=== PATIENT | male | born 1955 | race Caucasian/White ===

== ENCOUNTER 2019-03-04 08:54 | Emergency (ER) | payer BC ==
[2019-03-04 09:07] VITALS: BP 154/72; PULSE 84; TEMP 97.6; BMI 33.9
--- NOTE | 2019-03-04 09:49 | PDOC ---
History of Present Illness - General Chief Complaint: Nausea/Vomiting Stated Complaint: WEAKNESS/VOMITING - History of Present Illness Initial Comments: The pt is a 63M w/ a history of NIDDM who presents for evaluation of lightheadedness and NBNB x2 that the pt reports is how he feels when his BG is elevated. He take Metformin and another oral agent that he reports compliance with and w/o recent regimen change. He denies decreased PO intake. Denies fevers/chills, chest pain, trouble breathing, abdominal pain, diarrhea, dysuria, hematuria, blood in his stool, or changes in sensation. 03/04/19 10:04 Past History - Past Medical History Allergies/Adverse Reactions: Allergies Allergy/AdvReac Type Severity Reaction Status Date / Time No Known Allergies Allergy Verified 03/30/16 11:25 Home Medications: Ambulatory Orders Metformin HCl [Glucophage] 1,000 mg PO BID 01/25/16 Glimepiride [Amaryl -] 2 mg PO BID 03/04/19 Icosapent Ethyl [Vascepa] 1 gm PO BID 03/04/19 Losartan Potassium 25 mg PO DAILY 03/04/19 Saxagliptin HCl [Onglyza] 5 mg PO DAILY 03/04/19 COPD: No Diabetes: Yes HTN: Yes Hypercholesterolemia: Yes - Surgical History Abdominal Surgery: Yes (HERNIA) Appendectomy: Yes Orthopedic Surgery: Yes (left knee meniscus repair 3yrs ago) - Family Disease History Family Disease History: Diabetes: Mother - Immunization History Td Vaccination: Yes TDAP Vaccination: Yes Immunization Up to Date: Yes - Suicide/Smoking/Psychosocial Hx Smoking History: Never smoked Have you smoked in the past 12 months: No Information on smoking cessation initiated: No Hx Alcohol Use: No Drug/Substance Use Hx: No Substance Use Type: None Review of Systems - Review of Systems Able to Perform ROS?: Yes Comments:: GENERAL/CONSTITUTIONAL: No fever or chills. No weakness HEAD, EYES, EARS, NOSE AND THROAT: No change in vision. No ear pain or discharge. No sore throat CARDIOVASCULAR: No chest pain or shortness of breath RESPIRATORY: Denies cough, hemoptysis GASTROINTESTINAL: No diarrhea or constipation GENITOURINARY: No dysuria, frequency, or change in urination MUSCULOSKELETAL: No joint or muscle swelling or pain. No neck or back pain SKIN: No rash NEUROLOGIC: No headache, vertigo, loss of consciousness, or change in strength/ sensation ENDOCRINE: No increased thirst. No abnormal weight change HEMATOLOGIC/LYMPHATIC: No anemia, easy bleeding, or history of blood clots ALLERGIC/IMMUNOLOGIC: No hives or skin allergy 03/04/19 09:49 Is the patient limited Yoruba proficient: No *Physical Exam - Vital Signs Last Vital Signs Temp Pulse Resp BP Pulse Ox 97.6 F 84 16 154/72 98 03/04/19 09:03 03/04/19 09:03 03/04/19 09:03 03/04/19 09:03 03/04/19 09:03 - Physical Exam Comments: GENERAL: Awake, alert, and oriented to person/place/time, in no acute distress HEAD: No signs of trauma, normocephalic, atraumatic EYES: PERRLA, EOMI, sclera anicteric, conjunctiva clear ENT: Hearing grossly normal, nares patent, oropharynx clear without exudates. Moist mucosa LUNGS: No distress, speaks in full sentences, clear to auscultation bilaterally HEART: Regular rate and rhythm, normal S1 and S2, no murmurs appreciated, peripheral pulses normal and equal bilaterally ABDOMEN: Soft, nontender, normoactive bowel sounds. No guarding, no rebound EXTREMITIES: Normal inspection, Normal range of motion, no edema. No clubbing or cyanosis NEUROLOGICAL: Cranial nerves II through XII grossly intact. Normal speech, normal gait, no focal sensorimotor deficits SKIN: Warm, Dry 03/04/19 09:49 ED Treatment Course - LABORATORY CBC & Chemistry Diagram: 03/04/19 10:00 03/04/19 10:00 Medical Decision Making - Medical Decision Making The pt is a 63M w/ a history of NIDDM who presents for evaluation of hyperglycemia associated with nausea, NBNB vomiting x1, and dizziness Ddx DKA/HHS/hyperglycemia, lyte abn CMP, CBC, Serum Acetone ECG BGM Pt hyperglycemic to 200s -IVF 03/04/19 10:06 Lytes unremarkable BUN mildly elevated, receiving IVF No anemia No leukcytosis LFTs unremarkable Will reassess 03/04/19 11:03 Pt feels improved No AG Acetone neg Plan for D/C w/ PCP f/u Discharge instructions and return precautions given Pt in agreement and verbalized understandin Dispo: home *DC/Admit/Observation/Transfer Diagnosis at time of Disposition: Hyperglycemia - Discharge Dispostion Disposition: HOME Condition at time of disposition: Improved Decision to Admit order: No - Referrals Referrals: Minnie Benjamin MD [Primary Care Provider] - - Patient Instructions Printed Discharge Instructions: DI for Hyperglycemia -- Adult Additional Instructions: You were seen in the Emergency Department for evaluation of high blood sugar. Your labs were notable for an elevation in your BUN which can be a marker of dehydration or decreased kidney function and you were given 2 liters of IV fluid. Review the handout provided at discharge, continue to take your diabetic medications as prescribed, and follow up with your primary care provider within the week. Return to the Emergency Department if you develop fevers/chills, chest pain, trouble breathing, abdominal pain, dizziness, inability to tolerate food, worsening symptoms, or any new/concerning symptoms. - Post Discharge Activity Forms/Work/School Notes: Back to Work
[2019-03-04] MEDS ORDERED: SODIUM CHLORIDE 0.9% 500 ML INFUS.BAG IV ONE (10:08)
[2019-03-04 10:15] LABS: BASO % 0.4 % (0-2.0); EOS % 0.6 % (0-4.5); HEMATOCRIT 43.8 % (35.4-49); HEMOGLOBIN 14.2 GM/dL (11.7-16.9); LYMPH % 11.2 % (8-40); MCHC 32.4 g/dl (32.0-35.9); MEAN CELL VOLUME 70.9 fl (80-96); MEAN PLT VOLUME 7.5 fl (7.5-11.1); MONO % 4.5 % (3.8-10.2); NEUT % 83.3 % (42.8-82.8); PLATELET COUNT 251 K/MM3 (134-434); RBC 6.17 M/mm3 (4.00-5.60); RDW 17.1 % (11.9-15.9); WHITE BLOOD COUNT 9.8 K/mm3 (4.0-10.0)
[2019-03-04 10:51] LABS: ALBUMIN 3.9 g/dl (3.4-5.0); BILIRUBIN,TOTAL 0.5 mg/dL (0.2-1); BLOOD UREA NITROGEN 25.5 mg/dL (7-18); CREATININE 1.3 mg/dL (0.55-1.3); POTASSIUM 4.7 mmol/L (3.5-5.1); TOT PROT 7.5 g/dl (6.4-8.2)
[2019-03-04] MEDS ORDERED: MECLIZINE HCL 25 MG TABLET (FP) PO ONE (11:30)
[2019-03-04] MEDS ORDERED: MECLIZINE HCL 25 MG TABLET (FP) ONE (11:32)
[2019-03-04] MEDS ORDERED: SODIUM CHLORIDE 1,000 ML IV STA (11:33)
[2019-03-04] MEDS ORDERED: ONDANSETRON 4 MG/2 ML VIAL ONE (11:34)
[2019-03-04] MEDS ORDERED: ONDANSETRON 4 MG/2 ML VIAL IVPUSH ONE (11:34)
--- NOTE | 2019-03-04 11:35 | PDOC ---
Attending Attestation - Resident Resident Name: Adair Oliveran - ED Attending Attestation I have performed the following: I have examined & evaluated the patient, The case was reviewed & discussed with the resident, I agree w/resident's findings & plan - HPI HPI: 03/04/19 11:30 63-year-old male very active, well-controlled diabetes presents with lightheadedness/dizziness and nausea this morning. Patient admits to having high sugar diet last night, this morning ate breakfast but felt a little lightheaded, while at work developed nausea and subsequent nonbloody nonbilious vomiting with persistent dizziness or presents for evaluation. No headache/ vision change/speech change/focal deficit/neck pain, no chest pain/palpitations/ shortness of breath. No recent fevers or chills or infectious complaints No symptoms of hyperglycemia recently - Physicial Exam PE: 03/04/19 11:31 Vital signs normal Well-appearing well-developed Dry mucosa, no jaundice or pallor Heart is regular without audible murmur, lungs are clear Abdomen benign NEURO: Mental status: The patient is alert and oriented x3. Cranial nerves: Cranial nerves II through XII are intact Motor: The upper extremities are 5 over 5 in all muscle groups. The lower extremities are 5 over 5 in all muscle groups. No pronator drift. Sensation: Sensation is intact to light touch throughout. Cerebellar: Jexkhc-xlrgmy-alyh is normal in both upper extremities. Heel-knee- ludwig is normal in both lower extremities. Reflexes: 2+ and symmetric in the upper and lower extremities. Gait: Normal. Heel and toe walking are normal. Tandem gait is normal. - Medical Decision Making 03/04/19 11:32 63-year-old diabetic with dizziness and nausea/vomiting this morning, neurologically intact without evidence of cardiopulmonary process or red flags. Rule out hyperglycemia/DKA, rule out dehydration, not clinically consistent with CVA or TIA or ACS. ? peripheral vertigo given transient room-spinning with positional changes. Check labs, EKG IV fluid rehydration, nausea control Trial of meclizine Reassess 03/04/19 12:54 feels much better, labs wnl. seated and eating sandwich. requesting discharge, understands return criteria. Heart Score/ECG Review - History History: Slightly suspicious - Electrocardiogram EKG: Normal - Age Age: 45-65 - Risk Factors Based on the list above the patient has:: 1-2 risk factors - Troponin Troponin: </= normal limit - Score Heart Score - Total: 2 #1 ECG reviewed & interpreted by me at: 09:00 General ECG Interpretation: Sinus Rhythm, Normal Rate (81), Normal Intervals ( qtc 429, qrs 92), No acute ischemic changes
[2019-03-04 11:37] LABS: EPI CELLS 0.8 /HPF (0-5/HPF); HYALINE CASTS 4 /lpf (0-8); PH,URINE 6.5 (5.0-8.0); URINE APPEARANCE CLEAR; URINE BACTERIA 2.7 /hpf (NEGATIVE); URINE BILIRUBIN NEGATIVE (NEGATIVE); URINE COLOR YELLOW; URINE GLUCOSE (UA) 3+ (NEGATIVE); URINE KETONE 1+ (NEGATIVE); URINE LEUK ESTERASE NEGATIVE (NEGATIVE); URINE NITRITE NEGATIVE (NEGATIVE); URINE PROTEIN 2+ (NEGATIVE); URINE RBC 3 /hpf (0-4); URINE UROBILINOGEN 0.2 mg/dL (0.2-1.0); URINE WBC 4 /hpf (0-5)
--- NOTE | 2019-03-04 14:33 | EKG ---
Test Reason : Blood Pressure : / mmHG Vent. Rate : 081 BPM Atrial Rate : 081 BPM P-R Int : 158 ms QRS Dur : 092 ms QT Int : 370 ms P-R-T Axes : 050 031 010 degrees QTc Int : 429 ms NORMAL SINUS RHYTHM POSSIBLE LEFT ATRIAL ENLARGEMENT BORDERLINE ECG NO PREVIOUS ECGS AVAILABLE Confirmed by Sae Gaitan ([id number]) on 03/04/2019 2:32:52 PM Referred By: Confirmed By:Sae Gaitan
== END 2019-03-04 12:22 | disposition home or self-care (01) ==
LOC: JER 08:54
PROC: 3E0337Z Introduction of Electrolytic and Water Balance Substance into Peripheral Vein, Percutaneous Approach (ICD-10-PCS; principal; 2019-03-04)
PROC: 3E033GC Introduction of Other Therapeutic Substance into Peripheral Vein, Percutaneous Approach (ICD-10-PCS; 2019-03-04)
DX: E11.65 Type 2 diabetes mellitus with hyperglycemia (principal); Z79.84 Long term (current) use of oral hypoglycemic drugs; I10 Essential (primary) hypertension; E78.5 Hyperlipidemia, unspecified
CPT/HCPCS: 36415; 80053; 81003; 82009; 82962; 85025; 93005; 93010; 99282-25; J7030

== ENCOUNTER 2021-01-31 22:49 | Emergency (ER) | payer BC ==
[2021-01-31 22:58] VITALS: BMI 31.9
[2021-01-31] MEDS ORDERED: SUCRALFATE 1 GM TABLET (FP) PO ONE (23:30)
[2021-01-31] MEDS ORDERED: FAMOTIDINE 10 MG TABLET PO ONE (23:30)
[2021-01-31] MEDS ORDERED: MAG HYDROX/AL HYDROX/SIMETH 30 ML UNIT-DOSE CUP PO ONE (23:31)
[2021-01-31] MEDS ORDERED: FAMOTIDINE 10 MG TABLET ONE (23:44)
[2021-01-31] MEDS ORDERED: SUCRALFATE 1 GM TABLET (FP) ONE (23:44)
[2021-01-31] MEDS ORDERED: MAG HYDROX/AL HYDROX/SIMETH 30 ML UNIT-DOSE CUP ONE (23:44)
[2021-02-01 00:29] LABS: BASO % 0.2 % (0-2.0); EOS % 0.2 % (0-4.5); HEMATOCRIT 40.5 % (35.4-49); LYMPH % 11.3 % (8-40); MCH 27.4 pg (25.7-33.7); MCHC 34.5 g/dl (32.0-35.9); MEAN CELL VOLUME 79.3 fl (80-96); MONO % 6.5 % (3.8-10.2); NEUT % 81.8 % (42.8-82.8); PLATELET COUNT 231 K/MM3 (134-434); RDW 13.4 % (11.9-15.9); WHITE BLOOD COUNT 10.8 K/mm3 (4.0-10.0)
[2021-02-01 00:48] LABS: CHLORIDE 101 mmol/L (98-107); SODIUM 135 mmol/L (136-145)
[2021-02-01 00:49] LABS: ANION GAP 11 MMOL/L (8-16); BLOOD UREA NITROGEN 28.8 mg/dL (7-18); CALCIUM 9.6 mg/dL (8.5-10.1); CO2 23 mmol/L (21-32)
[2021-02-01 00:50] LABS: GLUCOSE,RANDOM 304 mg/dL (74-106)
[2021-02-01 00:53] LABS: CREATININE 1.2 mg/dL (0.55-1.3)
[2021-02-01] MEDS ORDERED: ASPIRIN 81 MG CHEWABLE TABLETS PO ONE (01:33)
[2021-02-01] MEDS ORDERED: ASPIRIN 81 MG CHEWABLE TABLETS ONE (01:41)
[2021-02-01] MEDS ORDERED: SODIUM CHLORIDE 0.9% 500 ML INFUS.BAG IV ONE (02:58)
[2021-02-01] MEDS ORDERED: HEPARIN NA (PORCINE) 5,000 UNITS/ML 1ML VIAL IVPUSH PRN ×2 (03:01)
[2021-02-01] MEDS ORDERED: NITROGLYCERIN SUBLINGUAL 1/150 0.4 MG TAB SL ONE (03:04)
[2021-02-01] MEDS ORDERED: HEPARIN - 25,000 UNIT in SODIUM CHLORIDE 495 ML IV SCH (03:15)
[2021-02-01] MEDS ORDERED: HEPARIN INFUSION - 25,000 UNITS/500 ML INFUS.BAG IVPB ONE (03:26)
[2021-02-01] MEDS ORDERED: NITROGLYCERIN SUBLINGUAL 1/150 0.4 MG TAB ONE (03:28)
[2021-02-01 04:02] LABS: INR 1.05 (0.83-1.09); PROTHROMBIN TIME (PATIENT) 12.9 SEC (9.7-13.0)
[2021-02-01 04:05] VITALS: BP 117/62; PULSE 53; TEMP 97.9
== END 2021-02-01 03:50 | disposition short-term general hospital (02) ==
LOC: JER 22:49
PROC: 3E033GC Introduction of Other Therapeutic Substance into Peripheral Vein, Percutaneous Approach (ICD-10-PCS; principal; 2021-01-31)
DX: I21.4 Non-ST elevation (NSTEMI) myocardial infarction (principal)
CPT/HCPCS: 36415; 71046-TC-FY; 80048; 82550; 82553; 84484; 85025; 85610; 85730; 93005; 93010; 99291; C9803; J1644; U0003; U0005